=== PATIENT | male | born 1940 | race Caucasian/White ===

== ENCOUNTER 2020-12-16 15:21 | Emergency (ER) | payer OTHER ==
[~2020-12-16] VITALS: Ht 193 cm; Wt 104.3 kg
[2020-12-16] MEDS ORDERED: cloNIDine HCL 0.1 MG TAB PO ONE ×2 (15:30→17:45)
[2020-12-16] MEDS ORDERED: PIPERACILLIN-TAZOB 3.375GM 100 ML IV ONE (15:45)
[2020-12-16] MEDS ORDERED: amLODIPine BESYLATE 5 MG TAB PO ONE (15:45)
[2020-12-16 16:21] LABS: Basophils # (auto) 0 10 ^3/uL (0-0.2); Basophils % (auto) 0.6 % (0.0-2.0); Eosinophils # (auto) 0.2 10 ^3/uL (0-0.8); Eosinophils % (auto) 3.3 % (0.0-7.0); Hematocrit 40.3 % (41.0-53.0); Hemoglobin 13.4 g/dL (13.5-17.5); Lymphocytes # (auto) 1.6 10 ^3/uL (0.4-5.4); Lymphocytes % (auto) 31.5 % (10.0-50.0); Mean Corpuscular Hemoglobin 29.4 pg (28.0-32.0); Mean Corpuscular Hgb Conc. 33.2 g/dL (32.0-36.0); Mean Corpuscular Volume 88.7 fL (80.0-100.0); Monocytes # (auto) 0.7 10 ^3/uL (0-1.3); Monocytes % (auto) 13.1 % (0.0-12.0); Neutrophils # (auto) 2.6 10 ^3/uL (1.6-8.6); Neutrophils % (auto) 51.5 % (37.0-80.0); Nucleated Red Blood Cells % 0.1 %; Platelet Count (auto) 199 10^3/uL (140-450); Red Blood Cells 4.54 10^6/uL (4.5-5.90); Red Cell Distribution Width 15.7 % (11.8-14.3); White Blood Cell 5.1 10^3/uL (4.4-10.8)
[2020-12-16 16:25] LABS: Albumin 3.1 g/dL (3.4-5.0); Calcium 8.2 mg/dL (8.5-10.1); Potassium 4.2 mmol/L (3.5-5.1)
[2020-12-16 16:30] LABS: BUN/Creatinine Ratio 22.1; Bilirubin, Total 0.3 mg/dL (0.2-1.0); Total Protein 6.6 g/dL (6.4-8.2)
[2020-12-16 16:44] LABS: Partial Thromboplastin Time 28.9 sec (23.0-31.2)
[2020-12-16] MEDS ORDERED: ENOXAPARIN SOD 100 MG/1 ML SYRINGE SC ONE (16:45)
[2020-12-16] MEDS ORDERED: ASPirin 81 mg TAB PO ONE (16:45)
[2020-12-16 19:28] VITALS: BP 154/88
== END 2020-12-16 20:29 | disposition home or self-care (01) ==
LOC: ER 15:21
DX: L03.115 Cellulitis of right lower limb (principal); I16.1 Hypertensive emergency; I10 Essential (primary) hypertension; R77.8 Other specified abnormalities of plasma proteins
CPT/HCPCS: 36415; 71045; 73700; 80053; 83605; 83880; 84484; 85025; 85610; 85730; 87040; 93970; 96365; 96366; 99285; J2543

== ENCOUNTER 2023-06-28 06:30 | Emergency (ER) | payer OTHER ==
[~2023-06-28] VITALS: Ht 185.4 cm; Wt 127.2 kg
[2023-06-28] MEDS ORDERED: SODIUM CHLORIDE 0.9% 500 ML IVB ONE (07:00)
[2023-06-28 07:42] LABS: Hematocrit 40.4 % (41.0-53.0); Hemoglobin 13.2 g/dL (13.5-17.5); Mean Corpuscular Hemoglobin 28.5 pg (28.0-32.0); Mean Corpuscular Hgb Conc. 32.8 g/dL (32.0-36.0); Mean Corpuscular Volume 86.9 fL (80.0-100.0); Red Blood Cells 4.64 10^6/uL (4.5-5.90); White Blood Cell 21.6 10^3/uL (4.4-10.8)
[2023-06-28 07:45] LABS: Basophils % (manual) 0 (0.0-2.0); Blast Cells 0; Eosinophils % (manual) 0 (0-7); Metamyelocytes % 0; Myelocytes % 0; Promyelocytes % 0; Reactive Lymphocytes 0
[2023-06-28 07:58] LABS: Albumin 2.8 g/dL (3.4-5.0); Potassium 4.2 mmol/L (3.5-5.1)
[2023-06-28 07:59] LABS: Lactic Acid w/Reflex 2.7 mmol/L (0.4-2.0)
[2023-06-28 08:01] LABS: BUN/Creatinine Ratio 25.9 (10.0-20.0); Bilirubin, Total 0.8 mg/dL (0.2-1.0); Total Protein 5.8 g/dL (6.4-8.2)
[2023-06-28 08:22] VITALS: PULSE 91; RESP 33; O2SAT 95
[2023-06-28 08:25] LABS: Band Neutrophils % (manual) 6; Lymphocytes % (manual) 4 (10.0-50.0); Monocytes % (manual) 7 (0-12)
[2023-06-28 08:26] LABS: Platelet Estimate Adequate
[2023-06-28] MEDS ORDERED: IOHEXOL 300 MG/ML 100ML BOTTLE IJ ONE (09:20)
[2023-06-28 10:00] VITALS: TEMP 98.2
[2023-06-28] MEDS ORDERED: levoFLOXacin 500MG 100 ML IV ONE (10:45)
[2023-06-28] MEDS ORDERED: cefTRIAXone 1GM/50ML D5W 50 ML IV ONE (10:45)
[2023-06-28] MEDS ORDERED: SODIUM CHLORIDE 0.9% 1,000 ML IV ONE (10:45)
[2023-06-28 11:57] LABS: Urine Bacteria FEW /hpf (None Seen); Urine Blood 2+ /uL (Negative); Urine Clarity HAZY (Clear); Urine Color Yellow (Yellow); Urine Hyaline Cast FEW /lpf (0 - 2); Urine Protein, UAD 1+ (Negative); Urine Specific Gravity 1.024 (1.001-1.035); Urine Urobilinogen Normal (Negative); Urine WBC 20 /hpf (0 - 3); Urine pH 5.5 (5.0-8.0)
[2023-06-28 13:25] LABS: Basophils # (auto) 0 10 ^3/uL (0-0.2); Basophils % (auto) 0.2 % (0.0-2.0); Eosinophils # (auto) 0 10 ^3/uL (0-0.8); Eosinophils % (auto) 0.1 % (0.0-7.0); Hematocrit 38.1 % (41.0-53.0); Hemoglobin 12.4 g/dL (13.5-17.5); Lymphocytes # (auto) 0.9 10 ^3/uL (0.4-5.4); Lymphocytes % (auto) 4.2 % (10.0-50.0); Mean Corpuscular Hemoglobin 28.4 pg (28.0-32.0); Mean Corpuscular Hgb Conc. 32.5 g/dL (32.0-36.0); Mean Corpuscular Volume 87.2 fL (80.0-100.0); Monocytes # (auto) 0.8 10 ^3/uL (0-1.3); Neutrophils # (auto) 19.2 10 ^3/uL (1.6-8.6); Neutrophils % (auto) 91.5 % (37.0-80.0); Red Blood Cells 4.37 10^6/uL (4.5-5.90)
[2023-06-28 13:25] LABS: Alcohol, Urine < 3.0 mg/dL (0-10); Amphetamine Screen, Urine NEGATIVE (NEGATIVE); Barbiturate Scree,Urine NEGATIVE (NEGATIVE); Benzodiazephine Screen, Urine NEGATIVE (NEGATIVE); Cannabinoid Screen, Urine NEGATIVE (NEGATIVE); Cocaine Screen, Urine NEGATIVE (NEGATIVE); Opiate Scree,Urine NEGATIVE (NEGATIVE); Phencyclidine Screen, Urine NEGATIVE (NEGATIVE)
[2023-06-28] MEDS ORDERED: AZIT-43 PO (13:26)
[2023-06-28] MEDS ORDERED: MET25T PO (13:26)
[2023-06-28] MEDS ORDERED: ASPI-325 PO (13:26)
[2023-06-28] MEDS ORDERED: PRED20TA2 PO (13:26)
[2023-06-28] MEDS ORDERED: APIX5TAB PO (13:26)
[2023-06-28] MEDS ORDERED: FAMO20TA10 PO (13:26)
[2023-06-28] MEDS ORDERED: AMIO400T3 PO (13:26)
[2023-06-28] MEDS ORDERED: HYDR-4902 PO (13:28)
[2023-06-28] MEDS ORDERED: CEFD300C2 PO (13:28)
[2023-06-28 18:00] VITALS: BP 141/88; PULSE 111; RESP 28; O2SAT 95
== END 2023-06-28 19:50 | disposition still patient (30) ==
LOC: ER 06:30 → EDBD 06:30 → ER 19:35
DX: S37.012A Minor contusion of left kidney, initial encounter (principal); I16.0 Hypertensive urgency; N39.0 Urinary tract infection, site not specified; D72.829 Elevated white blood cell count, unspecified; I25.10 Atherosclerotic heart disease of native coronary artery without angina pectoris; Z90.89 Acquired absence of other organs; Z79.2 Long term (current) use of antibiotics; Z79.82 Long term (current) use of aspirin; Z79.899 Other long term (current) drug therapy; X58.XXXA Exposure to other specified factors, initial encounter; Y93.89 Activity, other specified; Y92.89 Other specified places as the place of occurrence of the external cause; Y99.8 Other external cause status
CPT/HCPCS: 36415; 70450; 71260; 74176; 74177; 80053; 80307; 81001; 83605; 83690; 84484; 85007; 85025; 85027; 87040; 93005; 96361; 96365; 96367; 99285; J0696; J1956; J7040; Q9967